=== PATIENT | male | born 1995 | race Caucasian/White ===

== ENCOUNTER 2021-12-02 19:31 | Emergency (ER) | payer MEDICAID, OTHER, SELFPAY ==
[~2021-12-02] VITALS: Ht 175.3 cm; Wt 104.5 kg
[~2021-12-02 19:31] MED LIST: NOCURR
[2021-12-02 19:33] VITALS: BP 155/92
[2021-12-02] MEDS ORDERED: DiphenhydrAMINE HCL 50 MG/ML VIAL IVP ONE (19:45)
[2021-12-02] MEDS ORDERED: SODIUM CHLORIDE 0.9% 1,000 ML IV ONE (19:45)
[2021-12-02] MEDS ORDERED: METOCLOPRAMIDE HCL 5 MG/ML 2 ML VIAL IVP ONE (19:45)
[2021-12-02] MEDS ORDERED: KETOROLAC TROMETHAMINE 30 MG/ML VIAL IVP ONE (19:45)
[2021-12-02 19:58] LABS: BASOPHILS % (AUTO) 0.8 % (0.0-2.0); EOSINOPHILS % (AUTO) 1.2 % (1.0-6.0); HEMATOCRIT 42.4 % (41-53); HEMOGLOBIN 14.5 g/dL (13.5-17.5); LYMPHOCYTES % (AUTO) 32.9 % (22.0-44.0); MEAN CORPUSCULAR HGB CONC 34.3 G/dL (31.0-37.0); MEAN CORPUSCULAR VOLUME 91 fL (80-100); MONOCYTES # (AUTO) 0.7 K/uL (0.1-1.0); MONOCYTES % (AUTO) 7.5 % (2.0-9.0); NEUTROPHILS # (AUTO) 5.3 K/uL (1.8-7.7); NEUTROPHILS % (AUTO) 57.6 % (40.0-70.0); PLATELET COUNT (AUTO) 348 K/uL (150-450); RED BLOOD CELL COUNT(AUTO) 4.68 MIL/uL (4.50-5.90); RED CELL DISTRIBUTION WIDTH 12.7 % (11.5-14.5)
[2021-12-02] MEDS ORDERED: IBUPROFEN 600 MG TABLET PO ONE (20:00)
[2021-12-02 20:08] LABS: ANION GAP 7 mmol/L (8-16); CALCIUM, TOTAL 8.6 mg/dL (8.8-10.5); CARBON DIOXIDE 27 mmol/L (22-29); CHLORIDE 105 mmol/L (98-107); CREATININE 0.95 mg/dL (0.60-1.30); GLUCOSE,RANDOM 126 mg/dL (70-110); POTASSIUM 3.8 mmol/L (3.5-5.1); SODIUM SERUM 139 mmol/L (136-145); UREA NITROGEN, BLOOD 17 mg/dL (7-18)
[2021-12-02 20:13] LABS: ALBUMIN 3.8 g/dL (3.4-5.0); ALKALINE PHOSPHATASE 54 U/L (46-116); BILIRUBIN,TOTAL 0.2 mg/dL (0.1-1.0); TOTAL PROTEIN, SERUM 7.3 g/dL (6.4-8.2)
[2021-12-02 20:25] LABS: ALANINE AMINOTRANSFERASE 64 U/L (12-78); ASPARTATE AMINOTRANSFERASE 19 U/L (15-37)
[2021-12-02 20:29] LABS: GLOMERULAR FILTR. RATE CALC > 60 mL/min (>60)
[2021-12-02] MEDS ORDERED: IBUP-2070 PO (20:45)
[2021-12-02] MEDS ORDERED: CYCL-448 PO (20:45)
== END 2021-12-02 21:05 | disposition home or self-care (01) ==
LOC: EMS 19:45
DX: G44.209 Tension-type headache, unspecified, not intractable (principal)
CPT/HCPCS: 70450; 80053; 85025; 99284